=== PATIENT | female | born 1940 | race Caucasian/White ===

== ENCOUNTER → 2018-09-01 | Outpatient (CLI) | payer MEDICARE ==
[~2018-09-01] MED LIST: ALEN70 PO; CALCIUM GLUCONA45 MG PO; CYAN1000 PO; ERGO400 PO; ERGO50000 PO; FISH1000 PO; HYDCHL50 PO; HYDR1TAB94 PO; LANOXIN62.5 MCG PO; LOVA20 PO; LOVA40 PO; MULVITA PO; PYRI100 PO
== END | disposition home or self-care (01) ==
LOC: LAB 12:05 → LAB SHORT 12:05
DX: R30.0 Dysuria (principal)
CPT/HCPCS: 87086

== ENCOUNTER 2018-09-05 14:32 | Emergency (ER) | payer MEDICARE ==
[~2018-09-05] VITALS: Ht 167.6 cm; Wt 62.6 kg
[~2018-09-05 14:32] MED LIST changes: -HYDR1TAB94 PO; -LOVA40 PO
[2018-09-05] MEDS ORDERED: HYDR1TAB94 PO (17:08)
[2018-09-14] MEDS ORDERED: LOVA40 PO (14:32)
== END 2018-09-05 17:23 | disposition home or self-care (01) ==
LOC: ER 14:32 → EDSTATUS 14:33 → ER 17:23
DX: S52.571A Other intraarticular fracture of lower end of right radius, initial encounter for closed fracture (principal); S52.611A Displaced fracture of right ulna styloid process, initial encounter for closed fracture; W22.8XXA Striking against or struck by other objects, initial encounter; Z88.2 Allergy status to sulfonamides; Z79.899 Other long term (current) drug therapy
CPT/HCPCS: 25605; 73100; 73110; 96372; 99283-25; J3010

== ENCOUNTER 2018-09-19 09:12 | Day surgery (SDC) | payer MEDICARE ==
[~2018-09-19] VITALS: Ht 165.1 cm; Wt 62.6 kg
[~2018-09-19 09:12] MED LIST changes: +HYDR1TAB94 PO; +LOVA40 PO
--- NOTE | 2018-09-19 09:46 | NUR ---
Melvi/CHRISTIANO, HOWEVER A POOR HISTORIAN WHEN RECONCILING MEDICATION AND ALLERGY LIST. History, Chart, Medications and Allergies reviewed before start of procedure. Patient confirms NPO status and agrees with scheduled surgery. Patient reports completing Chlorhexadine shower X2 prior to admission to hospital. Her friend Mary is at bedside.
--- NOTE | 2018-09-19 12:20 | NUR ---
09/19/18 1220 Sari Mariano CANCELLOUS BONE CHIPS RECONSTITUTED WITH 0.9% SODIUM CHLORIDE SOLUTION LOT: [id number]. EXP: 04-05-21.
--- NOTE | 2018-09-19 15:02 | NUR ---
PT IS AWAKE AND TALKING TO RN. PT STATES SHE LIVES IN [place]. HER FRIEND STATES THAT THE PT HOUSE HAS SAFETY PULL CORDS IF SHE NEEDS HELP WELL HER FRIEND STATED THAT SHE COULD SPEND THE NIGHT AT THE PATIENT HOUSE (SHE LIVES ONE DOOR OVER). WILL CONTINUE TO MONITOR PT.
--- NOTE | 2018-09-19 15:21 | NUR ---
PT EATING JELLO AND CRACKERS. PT DRINKING WATER, TOOK NORCO 1 TAB (). RN EDUCATED PT ON MEDICATION DR BOLTON CAME AND SPOKE TO PT, PT STATED TO HIM THAT SHE WOULD FEEL BETTER TO STAY THE NIGHT IN THE HOSPITAL. FOR SAFETY AND PAIN CONTROL. SDS RN (LINH) WAS NOTIFIED. NURSING RN FLIGHT IS BEING CONTACTED
--- NOTE | 2018-09-19 15:30 | NUR ---
KHURRAM RN SPOKE ON THE PHONE WITH DR TANNER. SHE IS GETTING ORDERS FOR PT TO HAVE ON THE FLOOR. PT HAS STATED 8/10 PAIN IN HER LEFT ARM. 25MCG AT 1530 IV FENT GIVEN TO PT.
--- NOTE | 2018-09-19 15:34 | NUR ---
PT IS SITTING QUIETLY WITH EYES SHUT, STATES THAT IV FENT HAS HELPED AND PAIN IS NOW AT A 7/10.
--- NOTE | 2018-09-19 15:39 | NUR ---
PT IS RESTING QUIETLY WITH EYES SHUT. A SECOND DOSE OF 25MCG IV FENT GIVEN AT 1535. KHURRAM ACUÑA IS GETTING ORDERS PLACED FOR FLOOR FROM DR TANNER. PT BP IS TRENDING HIGH WILL MEDICATE PT WITH PAIN MEDS AND MONITOR BP BEFORE GIVING PT CARDIAC MEDS TO DECREASE BP. PT DOES NOT TAKE BP MEDS AT HOME.
--- NOTE | 2018-09-19 15:52 | NUR ---
PT WOKE UP WHEN RN CALLED NAME. STATED THAT SHE IS NOT HAVING ANY PAIN RIGHT NOW. "I FEEL ALOT BETTER". ICE PACK THAT WERE ON ARM WERE REMOVED TO GIVE PT A BREAK. FRIEND CONTINUES TO BE AT BEDSIDE. PT PLACED ON 1L 02 NC AT THIS TIME JUST TO KEEP O2 ABOVE 90% WHEN PT WAS RESTING. SURGICAL FLOOR IS AWARE THAT PT WILL BE EXTENDED RECOVERY. WILL CALL REPORT WHEN RN IS AVAILABLE.
--- NOTE | 2018-09-19 16:40 | NUR ---
RN WAITING TO GIVE REPORT TO FLOOR RN WHO IS BUSY WITH OTHER PATIENTS AT THIS TIME.
--- NOTE | 2018-09-19 16:50 | NUR ---
REPORT GIVEN TO FLOOR RN (AMY). PT IS STABLE RT WRIST DRSG CDI, CAP REFILL WNL. BP STABLE. FRIEND WENT HOME. ORDERS ON FRONT OF CHART.
--- NOTE | 2018-09-19 19:02 | NUR ---
PT HAS BEEN STABLE POST OP. PT MIN ASSIST UP TO CHAIR. NWB WITH RIGHT ARM. PT PAIN CONTROLLED WITH NORCO. PT MENA REG DIET. PT HAS NOT VOIDED YET POST OP. FLIP WRAP WITH SPLINT TO RIGHT ARM, CDI. PT USES CALL LIGHT APPROPRIATELY PRN. PLAN TO DC HOME TOMORROW WITH FRIEND.
--- NOTE | 2018-09-20 06:32 | NUR ---
SUMMARY POD #1 ORIF R DISTAL RADIUS PT HAS SLEPT THROUGH THE NIGHT WITH NO PROBLEMS. PAIN TOLERABLE WITH PO PAIN MEDS. VOIDING WNL. DRSG REMAINS C/D/I, RIGHT ARM ELEVATED ON PILLOWS, CIRC WNL, PT MOVES FINGERS, ICE PACK PLACED FOR EDEMA. CALL LIGHT IN REACH. TM
--- NOTE | 2018-09-20 06:45 | NUR ---
recvd report from previous shift jesica cat. pt sleeping, bed in lowest position, bed rails up x 2, call light within reach
[2018-09-20] MEDS ORDERED: HYDR1TAB94 PO (11:19)
--- NOTE | 2018-09-20 12:41 | NUR ---
pt provided with discharge instructions and printed materials. peripheral iv removed wnl. provided pt with assistance to dress. pt states understanding of instructions. awaiting pt's neighbor to escort her home
== END 2018-09-20 13:01 | disposition home or self-care (01) ==
LOC: ORSCMMR 09:12 → ORD 10:30 → ORSCMMR 10:30 → SURS 17:11 → ORSCMMR 09-20 13:01
PROC: 0PSH04Z Reposition Right Radius with Internal Fixation Device, Open Approach (ICD-10-PCS; principal; 2018-09-20)
DX: S52.591A Other fractures of lower end of right radius, initial encounter for closed fracture (principal)
CPT/HCPCS: 73100; C1713; J0690; J1100; J2250; J2405; J3010; J7120

== ENCOUNTER 2018-10-24 09:24 | Day surgery (SDC) | payer MEDICARE ==
[~2018-10-24] VITALS: Ht 165.1 cm; Wt 58.0 kg
--- NOTE | 2018-10-24 10:01 | NUR ---
History, Chart, Medications and Allergies reviewed before start of procedure. Patient confirms NPO status and agrees with scheduled surgery. Patient States Post-Procedure ride home has been arranged with her friend, Mary.
--- NOTE | 2018-10-24 10:17 | NUR ---
Patient reports completing Chlorhexadine shower X1 prior to admission to hospital.
--- NOTE | 2018-10-24 10:20 | NUR ---
Surgical site prepped with 2% Chlorhexidine cloth wipe. RLE elevated on pillow for comfort.
--- NOTE | 2018-10-24 12:21 | NUR ---
10/24/18 1221 Wilmer Wells 1GM @ 1154, IVPB, RIGHT FOREARM
--- NOTE | 2018-10-24 13:22 | NUR ---
PT TO STEP DOWN, TOLERATING GRAPE JUICE, 4/10 PAIN, GOOD CAP REFLL AND ABLE TO MOVE ALL FINGERS ON RIGHT WRIST, FLIP WRAP C/D/I. FRIEND CASEY AT BEDSIDE.
--- NOTE | 2018-10-24 14:21 | NUR ---
Discharge instructions reviewed with patient. Patient verbalizes understanding. Copy given to patient to take home. Discharged via wheelchair to private car for ride home.
--- NOTE | 2018-10-24 14:23 | NUR ---
RX GIVEN TO PT AND FRIEND CASEY, PT DENIES NEED FOR PAIN MEDICATION PRIOR TO DC HOME.
== END 2018-10-24 22:49 | disposition home or self-care (01) ==
LOC: ORSCMMR 09:24 → ORD 11:00 → ORSCMMR 22:49
PROVIDERS: Orthopaedic Surgery
PROC: 0PPH04Z Removal of Internal Fixation Device from Right Radius, Open Approach (ICD-10-PCS; principal; 2018-10-24 11:00)
DX: Z96.9 Presence of functional implant, unspecified (principal); I49.9 Cardiac arrhythmia, unspecified; E78.00 Pure hypercholesterolemia, unspecified; Z79.899 Other long term (current) drug therapy
CPT/HCPCS: 73100; J0690; J3010; J7120

== ENCOUNTER 2019-09-04 21:02 | Inpatient (IN) | payer MEDICARE ==
[~2019-09-04] VITALS: Ht 170.2 cm; Wt 56.0 kg
[2019-09-04 22:35] LABS: BASOPHILS ABSOLUTE AUTO 0.05 K/mm3 (0.00-0.23); BASOPHILS PERCENT AUTO 0 % (0-2); EOSINOPHILS ABSOLUTE AUTO 0.07 K/mm3 (0.00-0.68); EOSINOPHILS PERCENT AUTO 1 % (0-6); Hematocrit 41.1 % (33.0-51.0); Hemoglobin 13.2 g/dL (11.5-16.0); IMMATURE GRAN ABSOLUTE AUTO 0.09 K/mm3 (0.00-0.10); IMMATURE GRAN PERCENT AUTO 1 % (0-1); LYMPHOCYTES ABSOLUTE AUTO 0.93 K/mm3 (0.84-5.20); LYMPHOCYTES PERCENT AUTO 7 % (21-46); MONOCYTES ABSOLUTE AUTO 0.65 K/mm3 (0.16-1.47); MONOCYTES PERCENT AUTO 5 % (4-13); Mean Corpuscular HGB 29.7 pg (26.0-34.0); Mean Corpuscular HGB Conc 32.1 g/dL (31.5-36.5); Mean Corpuscular Volume 93 fL (80-100); Mean Platelet Volume 11.4 fL (9.1-12.4); NEUTROPHILS ABSOLUTE AUTO 12.19 K/mm3 (1.96-9.15); NEUTROPHILS PERCENT AUTO 87 % (41-73); Platelet Count 243 K/mm3 (150-400); RDW Coefficient Variation 12.6 % (11.7-14.2); RDW Standard Deviation 43.1 fL (35.1-46.3); Red Blood Cell Count 4.44 M/mm3 (3.80-5.20); White Blood Cell Count 13.98 K/mm3 (4.00-11.30)
[2019-09-04 22:50] LABS: Alanine Aminotransfer (ALT/SGP 30 U/L (12-78); Albumin, Blood 3.5 g/dL (3.4-5.0); Alk Phos 90 U/L (50-136); Anion Gap 8 mmol/L (6-16); Aspartate Aminotrans (AST/SGOT 26 U/L (12-37); Bilirubin, Total 0.3 mg/dL (0.1-1.0); Blood Urea Nitrogen 23 mg/dL (8-24); Bun/Creatinine Ratio 25.6 (12.0-20.0); CO2, Blood 27 mmol/L (21-32); Calcium, Blood 9.3 mg/dL (8.5-10.1); Chloride, Blood 103 mmol/L (98-108); Globulin, Blood 3.4 g/dL (2.2-4.0); Glomerular Filtration Rate >60 (60-); Glucose, Blood 134 mg/dL (70-99); Potassium, Blood 4.1 mmol/L (3.5-5.5); Sodium, Blood 138 mmol/L (136-145); Total Protein, Blood 6.9 g/dL (6.4-8.2)
--- NOTE | 2019-09-05 05:08 | NUR ---
SHIFT SUMMARY: PATIENT ARRIVED TO ROOM U02 AT APPROX 0030 09/05/2019. PATIENT DENIES PAIN BUT WAS FLINCHING AND CRYING OUT WHEN TRANSFERED TO BED FROM [facility]. PATIENT MEDICATION RECONCILLIATION COULD NOT BE COMPLETED PATIENT IS ORIENTED TO SELF BUT UNABLE TO REMEMBER PLACE, TIME OR EVENT. PATIENT SKIN APPEARS C/D/I, SBP 180 AND MEDICAION ADMINISTERED PER MD ORDER WITH SUCCESS. ALL OTHER ADMISSION COMPLETED, PATIENT ORIENTED TO ROOM, CALL LIGHT AND HOSPITAL POLICIES, HOWEVER PATIENT MAY NOT REMEMBER EDUCATION. VSS, CALL LIGHT WITHIN REACH, BED LOW AND LOCKED WITH EXIT ALARM ON
--- NOTE | 2019-09-05 08:43 | NUR ---
pt laying in bed awake a/ox3, pleasant and cooperative with care, follows commands well, denies pain at this time, lungs are clear dim in bases, resp even and unlabored, no cough noted, is on r/a, hrr, tele in place running sr with pacs, murmur noted, ppp+1, cap refill <3sec, vs stable, afebrile, iv site is clear and patent, btx4, abd flat soft nontender, voids via pandey at this time, skin c/w/d, brandi watkins, call light in reach. ortho consult was called in, will keep npo anticipating surgery today, Dr. Julio here to see her, changed her to surgical status.
--- NOTE | 2019-09-05 10:33 | NUR ---
pt has been transfered to surgical floor, report was given to recieving nurse, pt was taken via bed with her belongings, with call taker in attendence.
--- NOTE | 2019-09-05 11:29 | NUR ---
TRANSFER: PT TRANSFER TO ROOM 213 FROM PCU. PT ALERT AND CONFUSED. COOPERATIVE. VSS. DENIES PAIN. PT NPO FOR POSSIBLE SURGERY TODAY. BED ALARM ON AND PT INSRUCTED POLICE WORKER LIGHT USE.
--- NOTE | 2019-09-05 17:08 | NUR ---
PT HAS BEEN HYPERTENSIVE THIS AFTERNOON. RESPONDED WELL TO 10MG OF IV HYDRALAZINE. PT MEDICATED FOR PAIN WITH FENTANYL X1 AND TRAMADOL X1. PT MAY EAT AND BE NPO AFTER MIDNIGHT FOR POSSIBLE SURGERY TOMORROW. PT HAD 18G IV PLACED THIS AFTERNOON. PAS TO BLE. STANLEY DRAINING WELL. BED ALARM ON FOR SAFETY PT VERY CONFUSED. SON INVOLVED IN CARE AND NUMBER LEFT ON CHART.
--- NOTE | 2019-09-06 06:04 | NUR ---
SHIFT SUMMARY LYING IN SEMI FOWLERS WITH EYES CLOSED. HAS BEEN CONFUSED THROUGHOUT SHIFT. MULTIPLE ATTEMPTS TO GET OOB WERE ALERTED BY THE BED ALARM. WAS MEDICATED FOR PAIN X1. DENIES FURTHER NEEDS AT THIS TIME. SAFETY MEAURES IN PLACE. WILL GIVE HAND OFF TO ONCOMING SHIFT USING SBAR.
[2019-09-06 09:09] LABS: International Normalized Ratio 1.01; Prothrombin Time Results 10.7 Sec (9.7-11.5)
--- NOTE | 2019-09-06 12:05 | NUR ---
PATIENT TO DAY SURGERY AT THIS TIME. SON AT BEDSIDE EARLIER THIS AM, AWARE OF OR PLAN. PATIENT HAS SLEPT PAST 2 HOURS, NO S/SX OF DISTRESS NOTED.
--- NOTE | 2019-09-06 12:24 | NUR ---
History, Chart, Medications and Allergies reviewed before start of procedure.Patient confirms NPO status and agrees with scheduled surgery. Lungs clear T/O to Auscultation. PT'S RING IS IN HER BELONGING BAG ALONG WITH SHIRT AND BRA.
--- NOTE | 2019-09-06 15:30 | NUR ---
FC PATENT AND DRAINING YELLOW URINE.
--- NOTE | 2019-09-06 15:30 | NUR ---
PATIENT RETURNED TO ROOM FROM PACU AT THIS TIME. SLEEPING, AWAKENS WITH CARE. VSS. LS CLEAR. BIOX 99% ON RA. HRR. L HIP WITH AQUACEL DRESSING, D&I. CIRC CHECKS WNL. PAS IN PLACE. ORDER CLARIFICATION OBTAINED FROM DR ESPAÑA TO START LOVENOX TOMORROW. BED ALARM ON. CONT TO MONITOR.
--- NOTE | 2019-09-06 18:39 | NUR ---
SHIFT SUMMARY PATIENT HAS RESTED QUIETLY SINCE RETURNING FROM PACU; AWAKENS WITH CARE. VSS. DRESSING TO R HIP D&I; CIRC CHECKS WNL. SON IN TO SEE, LEFT NOTE FOR PATIENT. CONT TO MONITOR.
[2019-09-07 05:21] LABS: BASOPHILS ABSOLUTE AUTO 0.01 K/mm3 (0.00-0.23); BASOPHILS PERCENT AUTO 0 % (0-2); EOSINOPHILS ABSOLUTE AUTO 0.01 K/mm3 (0.00-0.68); EOSINOPHILS PERCENT AUTO 0 % (0-6); IMMATURE GRAN ABSOLUTE AUTO 0.06 K/mm3 (0.00-0.10); IMMATURE GRAN PERCENT AUTO 0 % (0-1); LYMPHOCYTES ABSOLUTE AUTO 0.77 K/mm3 (0.84-5.20); LYMPHOCYTES PERCENT AUTO 6 % (21-46); MONOCYTES PERCENT AUTO 7 % (4-13); Mean Corpuscular HGB 29.9 pg (26.0-34.0); Mean Corpuscular HGB Conc 32.4 g/dL (31.5-36.5); Mean Corpuscular Volume 92 fL (80-100); Mean Platelet Volume 11.1 fL (9.1-12.4); NEUTROPHILS ABSOLUTE AUTO 11.82 K/mm3 (1.96-9.15); NEUTROPHILS PERCENT AUTO 87 % (41-73); Platelet Count 211 K/mm3 (150-400); RDW Coefficient Variation 12.8 % (11.7-14.2); RDW Standard Deviation 43.8 fL (35.1-46.3); Red Blood Cell Count 3.68 M/mm3 (3.80-5.20); White Blood Cell Count 13.57 K/mm3 (4.00-11.30)
[2019-09-07 05:31] LABS: Anion Gap 7 mmol/L (6-16); Blood Urea Nitrogen 21 mg/dL (8-24); Bun/Creatinine Ratio 29.8 (12.0-20.0); CO2, Blood 23 mmol/L (21-32); Calcium, Blood 8.3 mg/dL (8.5-10.1); Chloride, Blood 105 mmol/L (98-108); Glomerular Filtration Rate >60 (60-); Glucose, Blood 113 mg/dL (70-99); Potassium, Blood 4.4 mmol/L (3.5-5.5); Sodium, Blood 135 mmol/L (136-145)
--- NOTE | 2019-09-07 06:18 | NUR ---
SHIFT SUMMARY LYING IN SEMI FOWLERS WITH EYES CLOSED. HAS RESTED WELL THIS SHIFT, DENIES PAIN. AQUACELL TO LEFT HIOP IS C/D/I. DENIES FURTHER NEEDS AT THIS TIME. SAFETY MEAURES IN PLACE. WILL GIVE HAND OFF TO ONCOMING SHIFT USING SBAR.
--- NOTE | 2019-09-07 09:46 | NUR ---
09/07/19 0946 Yeimi Davis VERIFICATIONS: EDIT CHART.
--- NOTE | 2019-09-07 16:50 | NUR ---
FC D/C'D AT THIS TIME. PATIENT REMINDED TO CALL FOR ASSISTANCE WHEN NEEDING UP TO BR; REMINDER NOTE WRITTEN ON BOARD AND PATIENT ABLE TO READ AND UNDERSTAND. CHAIR ALARM IN PLACE. PATIENT DENIES PAIN. DRESSING D&I. NO NEEDS AT THIS TIME.
--- NOTE | 2019-09-07 17:52 | NUR ---
SHIFT SUMMARY PATIENT HAS DENIED PAIN ALL SHIFT. UP TO CHAIR AND AMBULATED WELL WITH PT. TAKING PO W/O C/O. FC D/C'D AT 1650. DRESSING TO R HIP D&I. CHAIR ALARM IN PLACE, PATIENT FORGETFUL YET STATES SHE WILL PUSH CALL LIGHT IF NEEDING UP TO BR. PLEASANT AND COOPERATIVE WITH CARE.
--- NOTE | 2019-09-08 04:10 | NUR ---
SHIFT SUMMARY PT POD#2 RIGHT HEMIARTHROPLASTY. CONFUSED/COOPERATIVE. AQUACEL TO RIGHT HIP C/D/I. DENIES N/T BLE, MOVES TOES WELL, BRISK CAP REFILL BLE. PT UP TO RESTROOM WITH FWW 1 PERSON MODERATE ASSIST, TOLERATES WELL. PT CONFUSED T/O NIGHT, YELLING OUT + MULTIPLE ATTEMPTS TO GET OOB. BED ALARM ON MEDIUM SETTING + CALL LIGHT WITHIN REACH/PT REORIENTED TO USE OF CALL LIGHT PT USED CALL LIGHT YESTARDAY FOR ASSISATNCE. PT WITH SMALL AMOUNT OF PO INTAKE + MULTIPLE VOIDS THIS NOC SHIFT POST JADEN STONE. PT RESTED IN SMALL GAPS T/O NIGHT. PT SITTING UP IN BED WATCHING TV AT THIS TIME, NADN, WITH CALL LIGHT IN REACH + BED ALARM ON.
[2019-09-08 04:53] LABS: BASOPHILS ABSOLUTE AUTO 0.03 K/mm3 (0.00-0.23); BASOPHILS PERCENT AUTO 0 % (0-2); EOSINOPHILS PERCENT AUTO 3 % (0-6); Hematocrit 33.1 % (33.0-51.0); Hemoglobin 10.6 g/dL (11.5-16.0); IMMATURE GRAN ABSOLUTE AUTO 0.04 K/mm3 (0.00-0.10); IMMATURE GRAN PERCENT AUTO 0 % (0-1); LYMPHOCYTES ABSOLUTE AUTO 1.31 K/mm3 (0.84-5.20); LYMPHOCYTES PERCENT AUTO 14 % (21-46); MONOCYTES ABSOLUTE AUTO 0.63 K/mm3 (0.16-1.47); MONOCYTES PERCENT AUTO 7 % (4-13); Mean Corpuscular HGB 29.9 pg (26.0-34.0); Mean Corpuscular Volume 94 fL (80-100); Mean Platelet Volume 11.2 fL (9.1-12.4); NEUTROPHILS PERCENT AUTO 75 % (41-73); Platelet Count 202 K/mm3 (150-400); RDW Coefficient Variation 12.8 % (11.7-14.2); RDW Standard Deviation 44.1 fL (35.1-46.3); Red Blood Cell Count 3.54 M/mm3 (3.80-5.20); White Blood Cell Count 9.11 K/mm3 (4.00-11.30)
--- NOTE | 2019-09-08 16:03 | NUR ---
SHIFT SUMMARY PT PLEASANT, COOPERATIVE, CONFUSED. POD2 R GLORIA HIP, AQUACEL CDI. AMB W/SBA FWW & GB TO BRP, CHAIR AND HALLWAY. REP PAIN MANAGEABLE ONCE GETTING UP AND BEGIN TO WALK, DENIES NEED FOR PAIN MED. MENA PO, INTAKE WAS GOOD TODAY; PT REP ENJOYING MEALS. UP TO CHAIR T/O SHIFT; TAB ALARM ON. VOIDING WELL. WILL REPORT TO ONCOMING NOC RN.
--- NOTE | 2019-09-09 07:46 | NUR ---
SHIFT SUMMARY POD#3 RIGHT HEMIARTHROPLASTY. CONFUSED/COOPERATIVE. AQUACEL TO RIGHT HIP C/D/I. DISCOMFORT CONTROLLED WITH X1 NORCO. NO NAUSEA/EMESIS. PT UP TO RESTROOM, SBA WITH FWW. IMPULSIVE T/O NIGHT WITH MULTIPLE ATTEMPTS TO GET OOB W/O ASSISATNCE. BED ALARM ON HIGH SENSITIVITY + CALL LIGHT IN REACH. GOOD PO INTAKE + OUTPUT. NO ACUTE CHANGES OVER NIGHT. REPORT TO DAY SHIFT RN. PT CURRENTLY RESTING IN BED WITH BED ALARM ON + CALL LIGHT IN REACH.
--- NOTE | 2019-09-09 18:28 | NUR ---
SHIFT SUMMARY PT A&OX2 PLEASANTLY CONFUSED, VSS, POD4 R GLORIA HIP, AQUACEL CDI. PAIN MANAGED WITH TYLENOL. MENA PO, DENIES N&V, PO INTAKE HAS BEEN GOOD. VOIDING WELL. AMB W/SBA FWW & GB TO BRP AND IN HALLWAYS. UP TO CHAIR T/O SHIFT. AWAITING PLACEMENT IN [facility] UP BY HER SONS. WILL REPORT TO ONCOMING MIGUEL ANGEL ACUÑA.
--- NOTE | 2019-09-10 07:34 | NUR ---
SHIFT SUMMARY POD 5 S/P RIGHT GLORIA HIP. AQUACEL TO RIGHT HIP C/D/I. PAIN MANAGED WITH 1 NORCO. TOLERATING PO, NO N/V. UP TO BATHROOM WITH FWW, GAITBELT, AND SBA; REQUIRES COACHING/ENCOURG. IMPULSIVE/CONFUSED BUT IS PLEASANT/COOPERATIVE. AWAITING SNF PLACEMENT. NO ACUTE CHANGES DURING SHIFT. CURRENTLY RESTING IN BED WITH CALL LIGHT IN REACH. WILL CONT TO MONITOR AND GIVE REPORT TO ONCOMING RN.
--- NOTE | 2019-09-10 17:58 | NUR ---
SHIFT SUMMARY PAIN HAS BEEN MINIMAL THIS SHIFT. PT IS A 1 ASSIST WHEN OOB. PT HAS BEEN CONFUSED AND FORGETFUL T/O THE SHIFT. PT REQUIRES TAB ALARM WHEN SITTING UP IN HER CHAIR. PT IS AWAITING SNF PLACEMENT IN [place] SO SHE CAN BE CLOSER TO HER FAMILY. VSS. WILL CONTINUE TO MONITOR.
--- NOTE | 2019-09-11 05:00 | NUR ---
SHIFT SUMMARY PT IS VERY CONFUSED BUT HAS BEEN PLEASANT. BED ALARM HAS BEEN ON. PT HAS WALKED TO BATHROOM MULT TIMES WITH WALKER, GAIT BELT, AND 1-2 X ASSIST. PT IS VOIDING AND REPORTS NO PAIN EXCEPT MILD DISCOMFORT WITH MOVEMENT. ASSISTED WTIH ADL'S PRN.
--- NOTE | 2019-09-11 13:45 | NUR ---
REPORT CALLED TO ELOISE LAGOS AT [facility]. PRIOR TO PT LEAVING HOSPITAL.
--- NOTE | 2019-09-11 13:46 | NUR ---
DISCHARGE PT LEAVING BY GURNEY TRANSPORT. PT ALERT AND PLEASANT AT TIME OF TRANSFER. PT EDUCATED ABOUT TRANSFER AND REMINDED SHE IS GOING TO [place] TO BE CLOSER TO HER FAMILY. DISCHARGE PACKET PROVIDED FOR PT WITH SCRIPT AND DRESSINGS. REPORT CALLED TO ELOISE LAGOS AT [facility] BEFORE PT DISCHARGE. VSS.
== END 2019-09-11 13:49 | DRG 470 ==
LOC: ER 21:02 → PCU 23:03 → SURS 23:03 → PCU 09-05 00:35 → SURS 09-05 10:42
PROVIDERS: Hospitalist; Orthopaedic Surgery; Physician Assistant; ADMIT Family Medicine
PROC: 0SRR0JA Replacement of Right Hip Joint, Femoral Surface with Synthetic Substitute, Uncemented, Open Approach (ICD-10-PCS; principal; 2019-09-06 12:30)
DX: S72.001A Fracture of unspecified part of neck of right femur, initial encounter for closed fracture (principal); W19.XXXA Unspecified fall, initial encounter; I10 Essential (primary) hypertension; G30.9 Alzheimer's disease, unspecified; F02.80 Dementia in other diseases classified elsewhere, unspecified severity, without behavioral disturbance, psychotic disturbance, mood disturbance, and anxiety; M81.0 Age-related osteoporosis without current pathological fracture; Z88.1 Allergy status to other antibiotic agents; Z88.2 Allergy status to sulfonamides
CPT/HCPCS: 36415; 51702; 71045; 72170; 73502; 73600; 80048; 80053; 80162; 84443; 85025; 85610; 85730; 88305; 88311; 93005; 93010; 97110; 97116; 97162; 97166; 97530; 97535; 99285-25; A9270; A9270-GY; C1776; J0171; J0360; J0690; J0735; J1100; J1650; J1885; J2405; J2704; J2795; J3010; J7120